=== PATIENT | male | born 1980 | race American Indian/Alaskan Native ===

== ENCOUNTER 2018-07-04 10:52 | Observation (INO) | payer MEDICAID ==
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
[2018-07-04 12:11] LABS: ANION GAP 12.1; CHLORIDE,CL 96 mmol/L (101-111); SODIUM,NA 129 mmol/L (135-145)
[2018-07-04] MEDS ORDERED: Vancomycin 2 GM in Sodium Chloride 0.9% 500 ML IV ONE (12:21)
--- NOTE | 2018-07-04 12:58 | CR ---
CLINICAL HISTORY: 37-year-old male with low back "stiffness". INTERPRETATION: Osteoarthritis (marginal spondylosis present all levels the lumbar spine). No sign of pathologic skeletal lesion, lumbar fracture, spondylolisthesis or abnormal intervertebral disc space narrowing. Symmetric spacing normal-appearing SI and hip joints. No foreign bodies.
[2018-07-04] MEDS ORDERED: Aluminum Hydroxide/Magnesium Hydroxide/Simethicone Susp 30 ML Cup PO PRN (14:12)
[2018-07-04] MEDS ORDERED: Magnesium Hydroxide 400 MG/5 ML Susp 30 ML Cup PO PRN (14:12)
[2018-07-04] MEDS ORDERED: Acetaminophen 325 MG Tab PO PRN (14:12)
[2018-07-04] MEDS ORDERED: Nicotine 7 MG/24 Hr Patch TRDERM SCH (14:30)
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
[2018-07-04] MEDS ORDERED: Potassium Chloride 20 MEQ in Premix Bag 1 BAG IV ONE (14:54)
[2018-07-04] MEDS ORDERED: Diphtheria,Pertussis(Acell),Tetanus Vaccine 0.5 ML SDV IM ONE (14:56)
[2018-07-04] MEDS: Sodium Chloride 0.9% 1,000 ML IV SCH (15:07)
[2018-07-04] MEDS: Piperacillin/Tazobactam 4.5 GM in Sodium Chloride 0.9% 100 ML IV SCH (17:36)
[2018-07-04 18:33] LABS: ANION GAP 11.5; CHLORIDE,CL 99 mmol/L (101-111); SODIUM,NA 131 mmol/L (135-145)
[2018-07-04] MEDS: Heparin Sodium 5,000 Units/ML Vial SUBCUT SCH (20:24)
[2018-07-04] MEDS: traMADol 50 MG Tab PO PRN (23:10)
[2018-07-05] MEDS: Piperacillin/Tazobactam 4.5 GM in Sodium Chloride 0.9% 100 ML IV SCH ×3 (00:03→11:32)
[2018-07-05] MEDS: Sodium Chloride 0.9% 1,000 ML IV SCH (02:17)
[2018-07-05] MEDS ORDERED: Nicotine 14 MG/24 Hr Patch TRDERM SCH (09:00)
[2018-07-05] MEDS: Heparin Sodium 5,000 Units/ML Vial SUBCUT SCH (09:43)
[2018-07-05] MEDS: traMADol 50 MG Tab PO PRN (11:31)
[2018-07-05] MEDS ORDERED: Clindamycin HCl 150 MG Cap PO SCH (12:00)
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
== END 2018-07-05 15:03 | disposition home or self-care (01) ==
LOC: DL.ED 10:52 → DL.MS 13:03 → UNDOADMOB 13:03 → DL.MS 14:12
PROVIDERS: ADMIT Student in an Organized Health Care Education/Training Program; ATTEND Student in an Organized Health Care Education/Training Program
DX: L03.116 Cellulitis of left lower limb (principal); L08.9 Local infection of the skin and subcutaneous tissue, unspecified; T07.XXXA Unspecified multiple injuries, initial encounter; D72.829 Elevated white blood cell count, unspecified; E87.6 Hypokalemia; E87.1 Hypo-osmolality and hyponatremia; M47.896 Other spondylosis, lumbar region; F17.200 Nicotine dependence, unspecified, uncomplicated; Z88.6 Allergy status to analgesic agent; Z79.2 Long term (current) use of antibiotics; Z79.899 Other long term (current) drug therapy; V29.9XXA Motorcycle rider (driver) (passenger) injured in unspecified traffic accident, initial encounter
CPT/HCPCS: 36415; 72100; 80048; 80053; 80202; 83605; 85025; 87040; 87070; 90471; 90715; 96365; 96366; 99285; A9270; J1644; J2543; J3370; J3480; J7030; J7040; J7050; 87077; 87186